=== PATIENT | male | born 1995 | race Caucasian/White ===

== ENCOUNTER 2020-04-15 16:08 | Emergency (ER) | payer SELFPAY ==
[2020-04-15 16:28] VITALS: BP 146/78; PULSE 103; RESP 16; TEMP 36.9; O2SAT 98; BMI 33.5
--- NOTE | 2020-04-15 16:36 | [facility].EDUTC ---
[facility] [place] Clinical Impression: Viral syndrome, Gastroenteritis Disposition: Home, Self-Care Condition on Discharge: Good Instructions: DI for Viral Syndrome Additional Instructions: Drink plenty of fluids. Take tylenol or ibuprofen for pain or fever. Take the medications as directed. Follow up with your regular doctor. GO TO THE ER FOR ANY WORSENING SYMPTOMS FOLLOW THE DIRECTIONS ON THE COVID-19 HAND OUT THAT WE GAVE YOU REGARDING SELF-ISOLATION UNTIL YOU KNOW YOUR COVID-19 RESULTS Prescriptions: Ondansetron [Zofran 4mg ODT] 4 mg PO Q8HP PRN #20 tab.rapdis PRN Reason: Nausea Transmission Status: Received by [facility] Referrals: PCP,No [Primary Care Provider] - Forms: Work/School Release Time of Disposition: 16:38 Medical Decision Making - Medical Records Medical records reviewed: No: I reviewed the patient's medical records. - Castro Inquiry Pt receiving controlled substance: No Vital Signs: 04/15/20 16:28 04/15/20 16:44 Temperature 98.4 F 98.5 F Temperature Source Oral Oral Pulse Rate 87 Pulse Rate [Right] 103 H Respiratory Rate 16 16 Blood Pressure 140/62 Blood Pressure [Right Arm] 146/78 H Blood Pressure Mean [Right Arm] 100 Blood Pressure Source Automatic Cuff Blood Pressure Source [Right Arm] Automatic Cuff Blood Pressure Position Sitting Blood Pressure Position [Right Arm] Sitting 02 Sat by Pulse Oximetry 98 Oxygen Delivery Method Room Air Room Air Orders (Tests/Meds): ORDERS Category Date Time Status SARS-CoV-2, ANIBAL Stat Lab 04/15/20 16:50 Received [facility] [place] - General Stated complaint: Fatigue, Diarrhea Time Seen by Provider: 04/15/20 16:36 Mode of Arrival: Ambulatory Source of Information: Patient Limitations: No Limitations Description of Symptoms (Recalled from Triage Doc. by RN): PT c/o diarrhea and feeling achey HEENT Symptoms (Recalled from RN notes): No Resp Symptoms (Recalled from RN notes): No Skin Symptoms (Recalled from RN notes): No MS Symptoms (Recalled from RN notes): No Functional Status (Recalled from RN notes): na - History of Present Illness Provider Complaint: He c/o body aches, mild cough, diarrhea and nausea for the past 1 day. He denies any known exposure to COVID-19. - Related Data Previous Rx's Medication Instructions Recorded Ondansetron [Zofran 4mg ODT] 4 mg PO Q8HP PRN #20 tab.emileedis 04/15/20 Allergies Allergy/AdvReac Type Severity Reaction Status Date / Time No Known Allergies Allergy Verified 04/15/20 16:34 - Worker's Comp Is this a Worker's Comp case?: No [facility] History - Hepatitis A Screen Drug use history?: No High risk sexual behaviors?: No History of sexually transmitted infection?: No Currently employed?: No Childcare worker?: No Do you have indoor plumbing?: Yes Do you have electricity?: Yes Attestation statement:: This patient has been screened for Hepatitis A risk factors. I have reviewed the patient's past medical history: Yes ROS Obtained: Yes All systems reviewed & no additional complaints - Constitutional Constitutional: Denies chills, Denies fever(s), Reports poor appetite, Reports malaise - Eyes Eyes: Denies eye discharge - ENT Ears, Nose, Mouth, and Throat: Reports as per HPI - Cardiovascular Cardiovascular: Denies chest pain - Respiratory Respiratory: No chest congestion, Yes cough Physical Exam - General General appearance: alert, in no apparent distress - Head Head exam: atraumatic, normocephalic, normal inspection - Eye Eye exam: Present: normal appearance, PERRL, EOMI - ENT ENT exam: Present: normal exam, normal oropharynx, mucous membranes moist, TM's normal bilaterally, normal external ear exam - Neck Neck exam: Present: normal inspection, full ROM, trachea midline. Absent: meningismus, lymphadenopathy - Chest Chest inspection: Present: normal inspection, symmetric chest wall rise. Absent: tenderness
[2020-04-15 16:44] VITALS: BP 140/62; PULSE 87; RESP 16; TEMP 36.9; O2SAT 97
[2020-04-17 13:59] LABS: Covid-19 Nasal PCR Sendout Lex Not Detected
== END 2020-04-15 16:45 | disposition home or self-care (01) ==
PROVIDERS: Emergency Provider Nurse Practitioner Family
DX: K52.9 Noninfective gastroenteritis and colitis, unspecified (principal); B34.9 Viral infection, unspecified; Z03.818 Encounter for observation for suspected exposure to other biological agents ruled out
CPT/HCPCS: 99201; U0004

== ENCOUNTER 2023-01-10 15:25 | Emergency (ER) | payer OTHER, SELFPAY ==
[2023-01-10 15:35] VITALS: BP 143/86; PULSE 101; RESP 18; TEMP 36.8; O2SAT 98; BMI 34.4
--- NOTE | 2023-01-10 15:47 | EXP.UTC ---
Discharge Plan Disposition Patient Disposition: Home, Self-Care Condition: Good Referrals Follow up/Referrals: Provider,Referral, MD [Primary Care Provider] - See instructions Activity Restrictions/Add. Instructions Additional Instructions/Restrictions: Follow up in the office in the Morning at 8am at [facility] in [place] Further instructions per the Eye Doctor Return if needed Clinical Impressions Clinical Impression: Eye problems Discharge ED Provider: Kierra Dial [facility] [place] General Stated complaint: LT eye irritated Mode of Arrival: Ambulatory Source of Information: Patient Limitations: No Limitations Time Seen by Provider: 01/10/23 15:47 Description of Symptoms (Recalled from Triage Doc. by RN): PATIENT C/O REDNESS, SORENESS AND SENSITIVITY TO LIGHT TO LEFT EYE X 3-4 DAYS HEENT Symptoms (Recalled from RN notes): Yes Resp Symptoms (Recalled from RN notes): No Skin Symptoms (Recalled from RN notes): No MS Symptoms (Recalled from RN notes): No Functional Status (Recalled from RN notes): WNL History of Present Illness Provider Complaint: Patient states that he worked in [employer] last week and for the last 3-4 days he has been having redness, irritation and his eye feels sore to the touch like someone has punched in the eye States that he hasnt got anything it and denies being hit in the eye Related Data Allergies Allergy/AdvReac Type Severity Reaction Status Date / Time No Known Allergies Allergy Verified 04/15/20 16:34 Worker's Comp Is this a Worker's Comp case?: No [facility] Disclaimer: The information contained in this section may have been updated after the patient was seen, as this information can be updated by other users. Social History Smoking Status: Unknown if ever smoked alcohol intake: never current occupational status: employed Travel in the last 8 weeks: None ROS Obtained: Yes All systems reviewed & no additional complaints except as documented and Yes Systems reviewed as appropriate & no additional complaints except as documented Constitutional Constitutional: Reports system reviewed and no additional complaints, except as documented and Reports as per HPI Eyes Eyes: Reports system reviewed and no additional complaints, except as documented, Reports as per HPI, Denies eye discharge, Reports irritation, Denies itchy eyes, Reports sensitivity to light and Reports other (eye sore to the touch and red) ENT Ears, Nose, Mouth, and Throat: Reports system reviewed and no additional complaints, except as documented and Reports as per HPI Cardiovascular Cardiovascular: Reports system reviewed and no additional complaints, except as documented and Reports as per HPI Respiratory Respiratory: Reports system reviewed and no additional complaints, except as documented and Reports as per HPI Gastrointestinal Gastrointestingal: Reports system reviewed and no additional complaints, except as documented and as per HPI Allergic/Immunologic Allergic/Immunologic: Denies itchy eyes Physical Exam General General appearance: alert and in no apparent distress Eye Eye exam: Present other (redness left eye, no drianage, no swelling) Respiratory Respiratory exam: Present normal lung sounds bilaterally; Absent respiratory distress or wheezes Cardiovascular Cardiovascular exam: Present regular rate, normal rhythm and normal heart sounds Neurological Exam Neurological exam: Present alert, oriented X3 and normal gait Medical Decision Making Castro Inquiry Pt receiving controlled substance: No Castro was queried for this patient: No Vital Signs: 01/10/23 15:35 Temperature 98.3 F Temperature Source Oral Pulse Rate [Left Brachial] 101 H Respiratory Rate 18 Blood Pressure [Left Arm] 143/86 H Blood Pressure Mean [Left Arm] 105 Blood Pressure Source [Left Arm] Automatic Cuff Blood Pressure Position [Left Arm] Sitting 02 Sat by Pulse Oximetry 98 Oxygen Delivery Method Room Air
[2023-01-10 15:59] VITALS: BP 143/86; PULSE 101; RESP 18; TEMP 36.8; O2SAT 98
== END 2023-01-10 16:04 | disposition home or self-care (01) ==
PROVIDERS: Emergency Provider Nurse Practitioner
DX: H57.89 Other specified disorders of eye and adnexa (principal)
CPT/HCPCS: 99204; 99212; G0463

== ENCOUNTER 2023-08-01 19:14 | Emergency (ER) | payer OTHER, SELFPAY ==
[2023-08-01 19:15] VITALS: BP 123/81; PULSE 69; RESP 18; TEMP 37.1; O2SAT 98; BMI 33.5
--- NOTE | 2023-08-01 19:31 | EXP.UTC ---
Discharge Plan Disposition Patient Disposition: Home, Self-Care Condition: Good Prescriptions Prescriptions: New cyclobenzaprine 10 mg Tablet 10 mg PO BID PRN (Reason: Muscle Spasm) Qty: 20 0RF methylprednisolone 4 mg Tablets,Dose Pack 4 mg PO DIRECTED Qty: 21 0RF Referrals Follow up/Referrals: Provider,Referral, [Primary Care Provider] - See instructions Activity Restrictions/Add. Instructions Additional Instructions/Restrictions: Go home and rest. It would be best if you rested tomorrow too. No heavy lifting. No twisting. Take the oral medications as directed. The muscle relaxer (cyclobenzaprine--Flexeril) will make you drowsy, so don't drive or operate heavy machinery after taking it. Don't start the oral steroids (medrol dose pack) until tomorrow, since you had the shots in here today. Follow up with your regular doctor. GO TO THE ER FOR ANY WORSENING SYMPTOMS OR CONCERN, ESPECIALLY BOWEL OR BLADDER ISSUES, SADDLE AREA NUMBNESS, FEVER, ETC Clinical Impressions Clinical Impression: Low back pain Stand Alone Forms Stand Alone Forms: Work/School Release Instructions Patient Instructions: Low Back Pain, DI for Low Back Pain, Ketorolac Injection, Dexamethasone Injection Discharge ED Provider: David Mcguire [facility] [place] General Stated complaint: back and neck pain, no accident Time Seen by Provider: 08/01/23 19:31 History of Present Illness Provider Complaint: He states that for the past 1 year he has had back pain. He states that his pain got worse about 3 days ago after he carried some heavy things. He denies that the pain radiates down his legs. He denies any bowel or bladder issues. He denies any saddle area numbness. Related Data Previous Rx's Medication Instructions Recorded cyclobenzaprine 10 mg tablet 10 mg PO BID PRN Muscle Spasm #20 08/01/23 tabs methylprednisolone 4 mg tablets in 4 mg PO DIRECTED #21 tabs 08/01/23 a dose pack Allergies Allergy/AdvReac Type Severity Reaction Status Date / Time No Known Allergies Allergy Verified 08/01/23 19:44 [facility] Disclaimer: The information contained in this section may have been updated after the patient was seen, as this information can be updated by other users. Social History Smoking Status: Unknown if ever smoked alcohol intake: never current occupational status: employed Travel in the last 8 weeks: None ROS Obtained: Yes All systems reviewed & no additional complaints except as documented Constitutional Constitutional: Denies chills and Denies fever(s) Eyes Eyes: Denies eye discharge ENT Ears, Nose, Mouth, and Throat: Denies dizziness, Denies otalgia and Denies sore throat Cardiovascular Cardiovascular: Denies chest pain Respiratory Respiratory: Denies shortness of breath, Denies chest congestion, Denies cough, Denies stridor and Denies wheezing Gastrointestinal Gastrointestingal: Denies nausea or vomiting Musculoskeletal Musculoskeletal: Reports as per HPI and Reports back pain Integumentary/Breasts Skin/Breast: Denies rash Neurologic Neurologic: Denies dizziness and Denies paresthesias Allergic/Immunologic Allergic/Immunologic: Denies wheezing Physical Exam General General appearance: alert and in no apparent distress Head Head exam: atraumatic, normocephalic and normal inspection Eye Eye exam: Present normal appearance, PERRL and EOMI ENT ENT exam: Present normal exam, normal oropharynx, mucous membranes moist, TM's normal bilaterally and normal external ear exam Neck Neck exam: Present normal inspection, full ROM and trachea midline; Absent meningismus or lymphadenopathy Chest Chest inspection: Present normal inspection and symmetric chest wall rise; Absent tenderness Respiratory Respiratory exam: Present normal lung sounds bilaterally; Absent respiratory distress Cardiovascular Cardiovascular exam: Present regular rate and n
[2023-08-01 20:14] VITALS: BP 123/81; PULSE 69; RESP 18; TEMP 37.1; O2SAT 98
== END 2023-08-01 20:14 | disposition home or self-care (01) ==
PROVIDERS: Emergency Provider Nurse Practitioner Family
DX: M54.50 Low back pain, unspecified (principal)
CPT/HCPCS: 96372; 99212; 99214; G0463

== ENCOUNTER 2023-12-24 09:42 | Emergency (ER) | payer OTHER, SELFPAY ==
[2023-12-24 09:43] VITALS: BP 140/63; PULSE 84; RESP 16; TEMP 36.6; O2SAT 100; BMI 32.5
[2023-12-24] MEDS: ONDANSETRON 4MG/2ML VIAL 4 MG IV ×2 (10:06→12:33)
[2023-12-24] MEDS: LACTATED RINGERS 1000ML 1,000 ML 999 ML IV (10:06)
[2023-12-24] MEDS: ACETAMINOPHEN 1,000MG/100ML VIAL 1000 MG IV (10:06)
[2023-12-24] MEDS: KETOROLAC 30MG/ML VIAL 15 MG IV (10:06)
[2023-12-24 10:07] LABS: Basophils # 0.1 K/mm3 (0-0.2); Basophils % 2.3 % (0.1-2.0); Eosinophils # 0.3 K/mm3 (0.0-0.4); Eosinophils % 4.2 % (0.1-12.0); Hematocrit 46.9 % (42.0-52.0); Hemoglobin 15.6 g/dL (14.1-18.0); Lymphocytes # 1.3 K/mm3 (0.7-4.5); Lymphocytes % 21.3 % (10-50); Mean Corpuscular HGB Conc 33.3 g/dL (31.8-35.4); Mean Corpuscular Hemoglobin 31.2 pg (27.0-31.2); Mean Corpuscular Volume 93.8 fl (80-94); Mean Platelet Volume 7.7 fl (7.4-10.4); Monocytes # 0.5 K/mm3 (0.1-1.0); Monocytes % 8.3 % (1.7-9.3); Platelet Count 225 K/mm3 (142-424); Red Cell Distribution Width 12.7 % (11.5-17.5); White Blood Count 6.3 K/mm3 (4.8-10.8)
[2023-12-24 10:11] LABS: Chloride 103 mmol/L (98-107); Potassium 3.2 mmoL/L (3.5-5.1); Sodium 139 mmol/L (136-145)
[2023-12-24 10:14] LABS: Alanine Aminotransferase 64 U/L (12-78); Albumin Level 4.5 g/dl (3.5-5.0); Albumin/Globulin Ratio 1.6 (1.1-1.8); Alkaline Phosphatase 153 U/L (38-126); Anion Gap 11.2 mEq/L (5-15); Aspartate Amino Transferase 92 U/L (17-59); Bilirubin,Total 0.9 mg/dl (0.2-1.3); Blood Urea Nitrogen 15 mg/dl (9-20); Calcium 9.8 mg/dl (8.4-10.2); Carbon Dioxide 28 mmol/L (22.0-30.0); Creatinine Clearance Estimated 169 mL/min (50-200); Estimated Glomerular Filt Rate 89 ml/min (>60); GFR (African American) 108 ML/MIN (>60); Globulin 2.9 g/dL (1.3-3.2); Glucose 118 mg/dl (74-100); Lipase 49 U/L (23-300); Total Protein,Serum 7.4 g/dl (6.3-8.2)
--- NOTE | 2023-12-24 10:18 | ED_ITS ---
Discharge Plan Disposition Patient Disposition: Home, Self-Care Prescriptions Prescriptions: New ondansetron 4 mg tablet,disintegrating 4 mg PO Q6H PRN (Reason: nausea and vomiting) Qty: 10 0RF No Action cyclobenzaprine 10 mg Tablet 10 mg PO BID PRN (Reason: Muscle Spasm) Qty: 20 0RF methylprednisolone 4 mg Tablets,Dose Pack 4 mg PO DIRECTED Qty: 21 0RF Referrals Follow up/Referrals: Provider,Referral, MD [Primary Care Provider] - See instructions Clinical Impressions Clinical Impression: Vomiting, Acute dehydration Instructions Patient Instructions: DI for Diarrhea and Traveler's Diarrhea -- Adult, DI for Diarrhea and Traveler's Diarrhea -- Child, DI for Nausea -- Adult, DI for Nausea -- Child Discharge ED Provider: Raoul Cramer General Adult HPI General Chief complaint: Nausea/Vomiting/Diarrhea Stated complaint: vomitting, poss dehydration Time Seen by Provider: 12/24/23 09:44 Mode of Arrival: Ambulatory Source of Information: Patient Limitations: No Limitations Description of Symptoms (Recalled from ER Triage Doc. by RN): Patient states he hasn't been able to eat for a couple of days and last night he began throwing up. States that he is achy. History of Present Illness HPI narrative: Is a 28-year-old male with no relevant medical history presenting with vomiting. Patient states that he has had decreased appetite the last 2 or 3 days with minimal solid p.o. intake, still tolerating clear liquids without vomiting. Thick liquids he is vomiting. Vomit is nonbloody, nonbilious. No diarrhea. He is still passing gas. No abdominal surgeries. No fevers or chills, chest pain, shortness of breath, recent sick contacts, recent travel, urinary symptoms, blood per rectum, or any other concerns. Related Data Previous Rx's Medication Instructions Recorded cyclobenzaprine 10 mg tablet 10 mg PO BID PRN Muscle Spasm #20 08/01/23 tabs methylprednisolone 4 mg tablets in 4 mg PO DIRECTED #21 tabs 08/01/23 a dose pack ondansetron 4 mg disintegrating 4 mg PO Q6H PRN nausea and 12/24/23 tablet vomiting #10 tabs Allergies Allergy/AdvReac Type Severity Reaction Status Date / Time No Known Allergies Allergy Verified 08/01/23 19:44 [facility] Disclaimer: The information contained in this section may have been updated after the patient was seen, as this information can be updated by other users. Social History Smoking Status: Current every day smoker alcohol intake: never current occupational status: employed Travel in the last 8 weeks: None ROS Obtained: Yes All systems reviewed & no additional complaints except as documented Physical Exam General General appearance: alert Head Head exam: atraumatic and normocephalic Eye Eye exam: Present normal appearance, PERRL and EOMI ENT ENT exam: Present mucous membranes moist Neck Neck exam: Present trachea midline Chest Chest inspection: Present normal inspection and symmetric chest wall rise Respiratory Respiratory exam: Present normal lung sounds bilaterally; Absent respiratory distress, wheezes, stridor, accessory muscle use or prolonged expiratory phase Cardiovascular Cardiovascular exam: Present regular rate and normal rhythm Abdominal Exam Abdominal exam: Present soft; Absent distention, tenderness, guarding, rebound or rigidity Extremities Exam Extremities exam: Absent edema Neurological Exam Neurological exam: Present alert, oriented X3 and CN II-XII intact Skin Skin exam: Present warm and dry; Absent cyanosis, diaphoresis or pallor Medical Decision Making Medical Records Medical records reviewed: Yes I reviewed the patient's medical records. Castro Inquiry Pt receiving controlled substance: No Castro was queried for this patient: No Vital Signs: 12/24/23 09:43 12/24/23 10:31 12/24/23 10:45 Temperature 97.9 F Temperature Source Oral Pulse Rate 67 85 Pulse Rate [Radial] 84 Respiratory Rate 16 Blood Pressure 91/51 L 91/51 L Blood Pressure [Right Arm] 140/63 Blood Pressure Mean Blood Pressure Mean [Right Arm] 88 Blood Pressure Source Blood Pressure Source [Right Arm] Automatic Cuff Blood Pressure Position Blood Pressure Position [Right Arm] Sitting 02 Sat by Pulse Oximetry 100 99 95 Oxygen Delivery Method Room Air Room Air 12/24/23 11:00 12/24/23 11:30 12/24/23 12:50 Temperature 97.9 F Temperature Source Oral Pulse Rate 71 86 86 Pulse Rate [Radial] Respiratory Rate 18 16 16 Blood Pressure 102/58 L 105/50 L 105/50 L Blood Pressure [Right Arm] Blood Pressure Mean 66 68 Blood Pressure Mean [Right Arm] Blood Pressure Source Automatic Cuff Blood Pressure Source [Right Arm] Blood Pressure Position Sitting Blood Pressure Position [Right Arm] 02 Sat by Pulse Oximetry 100 98 Oxygen Delivery Method Room Air Lab Data Lab Results 12/24/23 09:58: WBC 6.3, RBC 5.00, Hgb 15.6, Hct 46.9, MCV 93.8, MCH 31.2, MCHC 33.3, RDW 12.7, Plt Count 225, MPV 7.7, Neut % (Auto) 64.0, Lymph % (Auto) 21.3, [place] % (Auto) 8.3, Eos % (Auto) 4.2, Baso % (Auto) 2.3 H, Neut # (Auto) 4.0, Lymph # (Auto) 1.3, [place] # (Auto) 0.5, Eos # (Auto) 0.3, Baso # (Auto) 0.1, Sodium 139, Potassium 3.2 L, Chloride 103, Carbon Dioxide 28, Anion Gap 11.2, BUN 15, Creatinine 1.00, Estimated Creat Clear 169, Estimated GFR 89, Est GFR ( Amer) 108, Glucose 118 H, Calcium 9.8, Total Bilirubin 0.9, AST 92 H, ALT 64, Alkaline Phosphatase 153 H, Total Protein 7.4, Albumin 4.5, Globulin 2.9, Albumin/Globulin Ratio 1.6, Lipase 49 12/24/23 09:58 12/24/23 09:58 Orders (Tests/Meds): ED MEDICATIONS Discontinued Medications Generic Name Dose Route Start Last Admin Trade Name Freq PRN Reason Stop Dose Admin Acetaminophen 1,000 mg 12/24/23 09:57 12/24/23 10:06 Acetaminophen 1,000mg/100ml Vial IV 12/24/23 09:58 1,000 mg ONCE ONE Administration Lactated Ringer's 1,000 mls @ 999 mls/hr 12/24/23 09:57 12/24/23 10:06 Lactated Ringer's 1000 Ml Bag IV 12/24/23 10:57 999 mls/hr .Q1H1M ONE Administration Ketorolac Tromethamine 15 mg 12/24/23 09:57 12/24/23 10:06 Ketorolac 30mg/Ml Vial IV 12/24/23 09:58 15 mg ONCE ONE Administration Ondansetron HCl 4 mg 12/24/23 09:57 12/24/23 10:06 Ondansetron 4mg/2ml Vial IV 12/24/23 09:58 4 mg ONCE ONE Administration Ondansetron HCl 4 mg 12/24/23 12:23 12/24/23 12:33 Ondansetron 4mg/2ml Vial IV 12/24/23 12:24 4 mg ONCE ONE Administration Potassium Chloride 40 meq 12/24/23 11:00 12/24/23 11:03 Potassium Chloride 20meq Tab PO 12/24/23 11:01 40 meq ONCE ONE Administration ORDERS Category Date Time Status CBC w/Auto Diff [Complete Blood Count Auto Diff] Stat Lab 12/24/23 09:58 Completed CMP [Comprehensive Metabolic Panel] Stat Lab 12/24/23 09:58 Completed Lipase Stat Lab 12/24/23 09:58 Completed Medical Decision Narrative: Is a 28-year-old male with no relevant medical history presenting with vomiting. Patient states that he has had decreased appetite the last 2 or 3 days with minimal solid p.o. intake, still tolerating clear liquids without vomiting. Thick liquids he is vomiting. Vomit is nonbloody, nonbilious. No diarrhea. He is still passing gas. No abdominal surgeries. No fevers or chills, chest pain, shortness of breath, recent sick contacts, recent travel, urinary symptoms, blood per rectum, or any other concerns. History obtained with patient. On arrival, patient hemodynamically stable, alert, oriented x4, appropriate, GCS 15, moving all extremities spontaneously, pupils equal and reactive to light. Full physical exam performed and significant for tired appearing male who is in no acute distress. Holding vomitus bag. Abdomen soft, nontender, nondistended. No overlying skin changes. No flank tenderness. Afebrile, normotensive, nontachycardic. Cardiopulmonary exam grossly normal and grossly neurologically intact. Differential includes PUD, gastritis, enteritis, gastroenteritis, pancreatitis, SBO, colitis, diverticulitis, nephrolithiasis, UTI, cholecystitis, choledocholithiasis, appendicitis, torsion, hepatitis, aortic pathology, mesenteric ischemia among others. Patient was given fluid bolus, Toradol, Zofran for symptomatic management and correction of underlying abnormalities. CT abdomen pelvis considered, but given incredibly benign abdominal exam, improvement with fluids, and labs, deemed unnecessary at this time. Patient was placed in observation beginning at 10 AM in order to give fluids, medications, reassess and determine need for admission versus home-going. The patient was provided medications and serial exams while awaiting results. Independent interpretation of results demonstrated nonactionable CBC. Mild hypokalemia, this was repleted orally. Lipase negative. On reevaluation, patient feeling much better. At this time, I feel patient is appropriate for discharge. Total observation time 2 hours. Critical Care Critical Care Time Critical Care Time: No
[2023-12-24 10:31] VITALS: BP 91/51; PULSE 67; O2SAT 99
[2023-12-24 10:45] VITALS: BP 91/51; PULSE 85; O2SAT 95
[2023-12-24 11:00] VITALS: BP 102/58; PULSE 71; RESP 18; O2SAT 100
[2023-12-24] MEDS: POTASSIUM CHLORIDE 20MEQ TAB 40 MEQ PO (11:03)
--- NOTE | 2023-12-24 11:26 | PC.NURSE ---
Rounded on pt. No needs or complaints voiced at this time. Call light remains within reach.
[2023-12-24 11:30] VITALS: BP 105/50; PULSE 86; RESP 16; O2SAT 98
[2023-12-24 12:50] VITALS: BP 105/50; PULSE 86; RESP 16; TEMP 36.6; O2SAT 98
== END 2023-12-24 12:51 | disposition home or self-care (01) ==
PROVIDERS: Emergency Provider Emergency Medicine
DX: E87.6 Hypokalemia (principal); E86.0 Dehydration; R11.2 Nausea with vomiting, unspecified; M79.18 Myalgia, other site; F17.210 Nicotine dependence, cigarettes, uncomplicated
CPT/HCPCS: 80053; 83690; 85025; 96361; 96374; 96375; 96376; 99284; J0131; J2405

== ENCOUNTER 2025-05-21 22:47 | Emergency (ER) | payer OTHER, SELFPAY ==
[2025-05-21 22:53] VITALS: BP 138/108; PULSE 111; RESP 16; TEMP 36.3; O2SAT 99; BMI 33.0
--- NOTE | 2025-05-21 22:59 | PC.NURSE ---
Pt awake alert and oriented Skin pink warm and dry Resp full and easy Speech clear and appropriate Family at bedside Eye appears irritated No hyphema noted PUpil round and reactive
--- NOTE | 2025-05-21 23:02 | [facility].EDGENADL ---
Discharge Plan Disposition Patient Disposition: Home, Self-Care Prescriptions Prescriptions: No Action cyclobenzaprine 10 mg Tablet 10 mg PO BID PRN (Reason: Muscle Spasm) Qty: 20 0RF methylprednisolone 4 mg Tablets,Dose Pack 4 mg PO DIRECTED Qty: 21 0RF ondansetron 4 mg tablet,disintegrating 4 mg PO Q6H PRN (Reason: nausea and vomiting) Qty: 10 0RF Referrals Follow up/Referrals: Provider,Referral, MD [Primary Care Provider, Medical] - See instructions Activity Restrictions/Add. Instructions Additional Instructions/Restrictions: Please follow-up with the eye doctor. Please use erythromycin ointment as prescribed, 4 times a day for 7 days. Please return to the emergency department if you develop any new or worsening symptoms or become concerned for your health. Clinical Impressions Clinical Impression: Acute foreign body of cornea Qualifiers: Encounter type: initial encounter Laterality: left Qualified Code(s): T15.02XA - Foreign body in cornea, left eye, initial encounter Print Language Print Language: Bengali Discharge ED Provider: Salty Benjamin General Adult HPI General Chief complaint: Eye Problems Stated complaint: AO 05/21/25 2100 FB left eye Time Seen by Provider: 05/21/25 22:54 Mode of Arrival: Ambulatory Source of Information: Patient Description of Symptoms (Recalled from ER Triage Doc. 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 Happened about 2 hours ago. Reports that his vision is fine but he has pain. Related Data Previous Rx's ?Medication ?Instructions ?Recorded cyclobenzaprine 10 mg tablet 10 mg PO BID PRN Muscle Spasm #20 08/01/23 tabs methylprednisolone 4 mg tablets in 4 mg PO DIRECTED #21 tabs 08/01/23 a dose pack ondansetron 4 mg disintegrating 4 mg PO Q6H PRN nausea and 12/24/23 tablet vomiting #10 tabs Allergies Allergy/AdvReac Type Severity Reaction Status Date / Time No Known Allergies Allergy Verified 08/01/23 19:44 [facility] Disclaimer: The information contained in this section may have been updated after the patient was seen, as this information can be updated by other users. Social History Smoking Status: Current every day smoker alcohol intake: never current occupational status: employed Travel in the last 8 weeks?: None Have you lived/traveled outside [place] in past 30 days?: No Contact w/someone who lives/traveled outside [place] past 30 days?: No Exposure to someone with infectious disease in past 14 days?: No Do you have a fever (greater than 100.4 F or 38 C)?: No Have you tested positive for COVID-19?: No Exposed to someone with COVID-19 in past 14 days?: No Do you have a sore throat?: No Do you have a cough?: No Do you have any weakness?: No Do you have any diarrhea?: No Are you experiencing any unusual bleeding?: No Do you have any muscle aches/pain?: No Do you have any abdominal pain?: No Are you experiencing loss of taste or smell?: No ROS Obtained: Yes All systems reviewed & no additional complaints except as documented Physical Exam General General appearance: alert and in no apparent distress Head Head exam: atraumatic and normocephalic Eye Eye exam: Present PERRL, EOMI, conjunctival redness and other (Corneal foreign body in the 6 o'clock position, appears small metallic) ENT ENT exam: Present normal oropharynx and normal external ear exam Neck Neck exam: Present normal inspection and full ROM Chest Chest inspection: Present normal inspection and symmetric chest wall rise; Absent tenderness Respiratory Respiratory exam: Present normal lung sounds bilaterally; Absent respiratory distress Cardiovascular Cardiovascular exam: Present regular rate and normal rhythm Abdominal Exam Abdominal exam: Present soft; Absent distention, tenderness or guarding Extremities Exam Extremities exam: Present normal inspection; Absent edema or joint swelling Back Exam Back exam: Present normal inspection; Absent tenderness Neurological Exam Neurological exam: Present alert and oriented X3; Absent motor sensory deficit Psychiatric Psychiatric exam: Present normal affect and normal mood Skin Skin exam: Present warm, dry and normal color Lymphatic Lymphatic Findings: no adenopathy Medical Decision Making Medical Records Medical records reviewed: Yes I reviewed the patient's medical records. Screening: Per USPSTF and CDC recommendations, given the prevalence of disease in our region, it is our hospital?s policy to screen for HIV and viral Hepatitis for all patients aged 18 and over and those with ongoing risk factors. Castro Inquiry Pt receiving controlled substance: No Castro was queried for this patient: No Vital Signs: 05/21/25 22:53 05/21/25 23:23 Temperature 97.4 F L 98.2 F Temperature Source Temporal Artery Scan Oral Pulse Rate 88 Pulse Rate [Right Radial] 111 H Respiratory Rate 16 20 Blood Pressure 140/90 Blood Pressure [Right Arm] 138/108 H Blood Pressure Mean [Right Arm] 118 Blood Pressure Source Automatic Cuff Blood Pressure Source [Right Arm] Automatic Cuff Blood Pressure Position Sitting Blood Pressure Position [Right Arm] Sitting 02 Sat by Pulse Oximetry 99 Oxygen Delivery Method Room Air Room Air Lab Data Lab results reviewed: Yes I reviewed the patient's lab results. Orders (Tests/Meds): ED MEDICATIONS Discontinued Medications Generic Name Dose Route Start Last Admin Trade Name Freq PRN Reason Stop Dose Admin Erythromycin 1 gm 05/21/25 23:12 05/21/25 23:20 Erythromycin Base 1 Gm Oint...G. OP 05/21/25 23:13 1 gm ONCE ONE Administration Tetracaine HCl 0 ml 05/21/25 23:12 05/21/25 23:19 Tetracaine 0.5% Opth Zaria 15ml OP 05/21/25 23:13 30 ml ONCE ONE Administration Medical Decision Narrative: 29-year-old male without significant past medical history presents for left eye foreign body approximately 2 hours after incident while grinding metal. History was obtained via interactive discussion with patient. On arrival, patient is [afebrile, hemodynamically stable, satting appropriately, alert, oriented x4, GCS 15], moving all extremities spontaneously. Full physical exam performed and significant for small punctate left corneal foreign body at the 6 o'clock position. No other lesions noted on exam. Differential includes but is not limited to corneal foreign body, corneal abrasion, corneal ulcer, globe injury. 1 piece of metal was able to be removed with a Q-tip. There remained a tiny bit of residue in the same spot. The area was scraped with a 18-gauge and the remainder of the residue was removed. Patient was discharged with erythromycin ointment and instructed to follow-up with a eye doctor, especially if symptoms are worsening or do not improve. Procedures Risk/Benefits of Procedure(s) Were Explained: Yes Eye Exam/FB Removal Location: eye (L) Topical anesthetic used: tetracaine Fluorescein Stick(s) used: Yes Procedure performed under: direct visualization with magnification Foreign body: metal Evidence of corneal penetration: No Technique: cotton tip swab and needle Post-procedure medication: ophthalmic antibiotic Patient tolerated procedure: well and no complications Critical Care Critical Care Time Critical Care Time: No
--- NOTE | 2025-05-21 23:10 | PC.NURSE ---
MD at bedside for eye exam
[2025-05-21] MEDS: TETRACAINE 0.5% OPTH SOL 15ML OP (23:19)
[2025-05-21] MEDS: ERYTHROMYCIN BASE 1 GM OINT...G. OP (23:20)
[2025-05-21 23:23] VITALS: BP 140/90; PULSE 88; RESP 20; TEMP 36.8; O2SAT 98
== END 2025-05-21 23:24 | disposition home or self-care (01) ==
PROVIDERS: Emergency Provider Emergency Medicine
DX: T15.00XA Foreign body in cornea, unspecified eye, initial encounter (principal)
CPT/HCPCS: 99282

== ENCOUNTER 2025-08-05 18:50 | Outpatient (CLI) | payer OTHER, SELFPAY ==
[2025-08-05 21:09] LABS: Coronavirus 19, PCR Not Detected (NotDetected); Influenza A, PCR Not Detected (NotDetected); Influenza B, PCR Not Detected (NotDetected)
== END 2025-08-05 23:59 ==
LOC: LAB.DROPOF 08-07 11:09
PROVIDERS: Visit Provider Nurse Practitioner
DX: J06.9 Acute upper respiratory infection, unspecified (principal)
CPT/HCPCS: 87631